=== PATIENT | female | born 1975 | race Caucasian/White ===

== ENCOUNTER 2017-02-21 21:47 | Emergency (ER) | payer SELFPAY ==
[~2017-02-21] VITALS: Ht 167.6 cm; Wt 62.0 kg
[~2017-02-21 21:47] MED LIST: BACTDS PO; HYDR-3011 PO; IBUP-1542 PO; RIFA300C53 PO
[2017-02-21 21:52] VITALS: Ht 167.6 cm; Wt 62.0 kg
[2017-02-22] MEDS ORDERED: TRAM50TA2 PO (15:06)
[2017-02-22] MEDS ORDERED: AMO500 PO (15:06)
[2017-02-22] MEDS ORDERED: IBUP-1542 PO (15:06)
== END 2017-02-22 01:16 | disposition left against medical advice (07) ==
LOC: FTE 21:47
DX: Z53.21 Procedure and treatment not carried out due to patient leaving prior to being seen by health care provider (principal)

== ENCOUNTER 2017-02-22 13:46 | Emergency (ER) | payer OTHER ==
[~2017-02-22] VITALS: Ht 165.1 cm; Wt 61.5 kg
[2017-02-22 13:51] VITALS: Ht 165.1 cm; Wt 61.5 kg
[2017-02-22] MEDS ORDERED: KETOROLAC 60 MG INJ IM STA (14:50)
--- NOTE | 2017-02-22 14:54 | ERD ---
ER Documentation Chief Complaint Date/Time DATE: 02/22/17 TIME: 14:52 Chief Complaint PAIN IN TEETH X 1 WK MOVING TO JAW, RT EAR, AND HEAD NOW. HPI This 41-year-old female complains of pain in her mouth for last week. Is worse with moving her jaw. She denies any history of trauma, fevers. She denies any difficulty swallowing. Pain seems to be centered around her right TMJ and radiates up the side of her head into her lower jaw. She denies any history of chewing gum or grinding her teeth. ROS All systems reviewed and are negative except as per history of present illness. Medications Home Meds Active Scripts Rifampin* (Rifampin*) 300 Mg Cap, 300 MG PO BID, #6 CAP Prov:MAIN PRICE NP 03/13/15 Ibuprofen* (Motrin*) 600 Mg Tab, 600 MG PO Q6H Y for PAIN AND OR ELEVATED TEMP, #30 Prov:MAIN PRICE NP 03/13/15 Hydroxyzine Hcl* (Hydroxyzine Hcl*) 25 Mg Tablet, 25 MG PO Q8H Y for ITCHING, # 30 TAB Prov:MAIN PRICE NP 03/13/15 Sulfamethoxazole-Trimethoprim* (Bactrim* DS) 800-160 Mg Tab, 1 TAB PO BID for 10 Days, TAB Prov:MAIN PRICE NP 03/13/15 Allergies Allergies: Coded Allergies: No Known Allergy (Unverified , 02/21/17) PMhx/Soc Hx Alcohol Use: No Hx Substance Use: No Hx Tobacco Use: No Physical Exam Vitals Vital Signs Date Time Temp Pulse Resp B/P Pulse Ox O2 Delivery O2 Flow Rate FiO2 02/22/17 13:51 98.7 63 18 167/77 99 Physical Exam Const: []Alert, [id number] per Head: Atraumatic Eyes: Normal Conjunctiva ENT: Normal External Ears, Nose and Mouth.No appreciable obvious carious teeth. No erythema or facial swelling or induration. There is tenderness to the right TMJ and masseter. No pulsatile temporal masses. Neck: Full range of motion..~ No meningismus. Resp: Clear to auscultation bilaterally Cardio: Regular rate and rhythm, no murmurs Abd: Soft, non tender, non distended. Normal bowel sounds Skin: No petechiae or rashes Back: No midline or flank tenderness Ext: No cyanosis, or edema Neur: Awake and alert Psych: Normal Mood and Affect Procedures/MDM Patient presents with right-sided facial pain. Since symptoms suggest TMJ. No evidence of temporal arteritis, signs of cellulitis or abscess or airway obstruction or hypoxemia. She will be treated with ibuprofen and tramadol and instructions for JAW rest. She will be treated with amoxicillin as well for possible dental infection although likely muscular skeletal. Patient was advised to follow-up with dentist or return for fevers, difficulty breathing, new worsening symptoms. Patient was given Toradol 60 mg here for pain. Departure Diagnosis: Primary Impression: Toothache Additional Impression: TMJ (temporomandibular joint syndrome) Condition: Stable RUDY METZGER MD Feb 22, 2017 14:54
[2017-02-22] MEDS ORDERED: IBUPROFEN 600 MG TAB PO ONE (15:00)
[2017-02-22] MEDS ORDERED: TRAM50TA2 PO (15:06)
[2017-02-22] MEDS ORDERED: IBUP-1542 PO (15:06)
[2017-02-22] MEDS ORDERED: AMO500 PO (15:06)
== END 2017-02-22 15:20 | disposition home or self-care (01) ==
LOC: FTE 13:46
DX: K08.89 Other specified disorders of teeth and supporting structures (principal); M26.621 Arthralgia of right temporomandibular joint
CPT/HCPCS: Z7502; Z7610; 99284

== ENCOUNTER 2018-01-11 16:56 | Emergency (ER) | END 2018-01-11 18:30 | disposition left against medical advice (07) ==